=== PATIENT | male | born 1990 | race Caucasian/White ===

== ENCOUNTER 2019-03-01 22:49 | Inpatient (IN) | payer MEDICAID, OTHER ==
[~2019-03-01] VITALS: Ht 185.4 cm; Wt 61.5 kg
[2019-03-01] MEDS ORDERED: VANCOMYCIN 1,200 MG in SODIUM CHLORIDE 0.9% 250 ML IV ONE (23:30)
[2019-03-01] MEDS ORDERED: VANCOMYCIN PER PHARMACY MC ONE (23:30)
[2019-03-01] MEDS ORDERED: AMPICILLIN/SULBACTAM 3 GM in SODIUM CHLORIDE 0.9% 100 ML IV ONE (23:30)
[2019-03-01] MEDS ORDERED: SODIUM CHLORIDE 0.9% 1,000ML IVBOLUS ONE (23:30)
[2019-03-01 23:45] LABS: BASOPHILS # (AUTO) 0.07 x10^3/uL (0-0.1); BASOPHILS % (AUTO) 1 % (0-1); EOSINOPHILS # (AUTO) 0.46 x10^3/uL (0-0.4); EOSINOPHILS % (AUTO) 3 % (1-7); LYMPHOCYTES % (AUTO) 27 % (22-44); MD NO; MEAN CORPUSCULAR HEMOGLOBIN 27.4 pg (27.5-34.5); MEAN CORPUSCULAR HGB CONC 32.3 g/dL (33.2-36.2); MEAN CORPUSCULAR VOLUME 84.8 fL (81-97); MEAN PLATELET VOLUME 7.3 fL (7.4-10.4); MONOCYTES # (AUTO) 0.25 x10^3/uL (0.2-0.8); MONOCYTES % (AUTO) 2 % (2-9); NEUTROPHILS % (AUTO) 68 % (42-75); PLATELET COUNT 993 x10^3/uL (130-400); RED BLOOD COUNT 4.22 x10^6/uL (4.38-5.82); RED CELL DISTRIBUTION WIDTH 15.4 % (9.4-14.8)
[2019-03-01 23:46] LABS: HCT (SEDRATE) 35.8 % (39.2-51.8)
[2019-03-01 23:58] LABS: ALANINE AMINOTRANSFERASE 55 U/L (12-78); ANION GAP 8 mmol/L (5-15); CALCIUM 9.4 mg/dL (8.5-10.1); CHLORIDE 104 mmol/L (98-107); CREATININE 1.09 mg/dL (0.7-1.3)
[2019-03-02 00:05] LABS: ALKALINE PHOSPHATASE 414 U/L (45-117); TOTAL PROTEIN 8.9 g/dL (6.4-8.2)
--- NOTE | 2019-03-02 00:06 | NUR ---
PT PRESENTS WITH MULTIPLE OPEN WOUNDS TO BILAT HIPS AND OPEN WOUND ON RIGHT BUTTOCKS WITH DRAINAGE. PT IS PALE IN APPEARANCE AND STATES HE HAS HAD THESE WOUNDS X 1 MONTH. 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
[2019-03-02 00:09] LABS: BILIRUBIN,TOTAL < 0.1 mg/dL (0.2-1.0)
[2019-03-02] MEDS ORDERED: MORPHINE SULFATE 4 MG/ML, 1ML IVPush ONE (00:30)
[2019-03-02] MEDS ORDERED: MORPHINE SULFATE 4 MG/ML, 1ML ONE (00:32)
[2019-03-02] MEDS ORDERED: OMNIPAQUE 350 MG/ML, 100ML BOTTLE ONE (01:16)
[2019-03-02 03:56] VITALS: BP 110/73
[2019-03-02 04:00] VITALS: BP 110/73
[2019-03-02] MEDS ORDERED: ONDANSETRON 2MG/ML, 2ML IVPush PRN (04:00)
[2019-03-02] MEDS ORDERED: OXYcodone IR 5MG TABLET PO PRN (04:00)
[2019-03-02] MEDS ORDERED: LORazepam 1MG TABLET PO PRN (04:00)
[2019-03-02] MEDS ORDERED: VANCOMYCIN PER PHARMACY MC PRN (04:00)
[2019-03-02] MEDS ORDERED: ZOSYN PER PHARMACY MC PRN (04:00)
[2019-03-02] MEDS ORDERED: ACETAMINOPHEN 325 MG TABLET PO PRN ×2 (04:00→15:00)
[2019-03-02] MEDS ORDERED: PIPERACILLIN/TAZO/PMX 3.375GM 50 ML IV SCH (04:00)
[2019-03-02] MEDS ORDERED: POLYETHYLENE GLYCOL 17 GM PACKET PO PRN (04:00)
[2019-03-02] MEDS ORDERED: HYDROmorphone 2 MG/ML, 1ML IVPush PRN (04:00)
[2019-03-02] MEDS ORDERED: LACTATED RINGERS 1,000 ML IV SCH (04:00)
[2019-03-02] MEDS ORDERED: ENALAPRILAT 1.25 MG/ML, 2ML IVPush PRN (04:00)
[2019-03-02 04:13] LABS: INTERNATIONAL NORMALIZED RATIO 1.06 (0.93-1.1); PROTHROMBIN TIME 11.1 Seconds (9.6-11.5)
[2019-03-02] MEDS ORDERED: PHARMACOKINETIC MONITORING MC PRN (04:30)
[2019-03-02 04:40] LABS: HEMOGLOBIN A1C 5.5 % (4.2-6.3)
[2019-03-02 05:31] LABS: AMPHETAMINE SCREEN, URINE Positive (Negative); BARBITURATE SCREEN, URINE Negative (Negative); BENZODIAZEPINE SCREEN, URINE Negative (Negative); CANNABINOID SCREEN, URINE Negative (Negative); COCAINE SCREEN, URINE Negative (Negative); METHADONE SCREEN, URINE Negative (Negative); OPIATE SCREEN, URINE Positive (Negative)
[2019-03-02 06:37] VITALS: BP 99/62
[2019-03-02] MEDS: HEPARIN 5,000 UNITS/ML, 1ML SQ SCH ×2 (07:30→19:30)
[2019-03-02] MEDS: OXYcodone IR 5MG TABLET PO PRN ×2 (08:28→23:13)
[2019-03-02] MEDS: AMPICILLIN/SULBACTAM 3 GM in SODIUM CHLORIDE 0.9% 100 ML IV SCH ×2 (08:32→18:15)
[2019-03-02] MEDS: SENNA/DOCUSATE TABLET PO SCH (09:00)
[2019-03-02] MEDS ORDERED: VANCOMYCIN 1,000 MG ONE (14:04)
[2019-03-02] MEDS ORDERED: TOBRAMYCIN SULFATE 1.2 GM IMP ONE (14:04)
[2019-03-02] MEDS ORDERED: MIDAZOLAM 1 MG/ML, 2ML ONE (14:27)
[2019-03-02] MEDS ORDERED: DEXAMETHASONE 4 MG/ML, 1ML ONE (14:30)
[2019-03-02] MEDS ORDERED: ONDANSETRON 2MG/ML, 2ML ONE (14:30)
[2019-03-02] MEDS ORDERED: MEPERIDINE/PF 100 MG/ML ONE (14:46)
[2019-03-02] MEDS ORDERED: FENTANYL PF 250 MCG/5ML ONE ×2 (14:46→14:59)
[2019-03-02] MEDS ORDERED: HYDROmorphone 2 MG/ML, 1ML ONE ×3 (14:53→15:39)
[2019-03-02] MEDS ORDERED: hydrALAzine 20 MG/ML, 1ML IV PRN (15:00)
[2019-03-02] MEDS ORDERED: MEPERIDINE/PF 25MG/0.5ML IVPush PRN (15:00)
[2019-03-02] MEDS ORDERED: PROMETHAZINE 25 MG/ML, 1ML IV PRN (15:00)
[2019-03-02] MEDS ORDERED: KETOROLAC 30 MG/1 ML IV PRN (15:00)
[2019-03-02] MEDS ORDERED: OXYcodone 5 MG/5 ML ORAL.SOL UDC PO PRN (15:00)
[2019-03-02] MEDS ORDERED: ALBUTEROL SULFATE 2.5 MG/3 ML NPPB PRN (15:00)
[2019-03-02] MEDS ORDERED: LABETALOL 5MG/ML, 20ML IV PRN (15:00)
[2019-03-02] MEDS ORDERED: FENTANYL PF 100 MCG/2ML ONE ×2 (15:11→15:39)
[2019-03-02] MEDS ORDERED: OXYcodone 5 MG/5 ML ORAL.SOL UDC ONE (15:12)
[2019-03-02 15:19] LABS: BASOPHILS # (AUTO) 0.13 x10^3/uL (0-0.1); BASOPHILS % (AUTO) 1 % (0-1); EOSINOPHILS % (AUTO) 4 % (1-7); LYMPHOCYTES # (AUTO) 2.81 x10^3/uL (1-3.4); LYMPHOCYTES % (AUTO) 25 % (22-44); MD NO; MEAN CORPUSCULAR HEMOGLOBIN 27.9 pg (27.5-34.5); MEAN CORPUSCULAR HGB CONC 33.2 g/dL (33.2-36.2); MEAN PLATELET VOLUME 7.8 fL (7.4-10.4); MONOCYTES # (AUTO) 0.13 x10^3/uL (0.2-0.8); MONOCYTES % (AUTO) 1 % (2-9); NEUTROPHILS # (AUTO) 7.91 x10^3/uL (1.8-6.8); NEUTROPHILS % (AUTO) 70 % (42-75); PLATELET COUNT 726 x10^3/uL (130-400); RED BLOOD COUNT 3.17 x10^6/uL (4.38-5.82); RED CELL DISTRIBUTION WIDTH 15.3 % (9.4-14.8)
[2019-03-02] MEDS: HYDROmorphone 2 MG/ML, 1ML IVPush PRN ×5 (15:23→15:48)
[2019-03-02] MEDS: FENTANYL PF 100 MCG/2ML IV PRN ×3 (15:32→15:44)
[2019-03-02] MEDS: DIAZEPAM 5 MG/ML, 2ML IVPush PRN ×2 (15:36→15:48)
[2019-03-02] MEDS ORDERED: MEPERIDINE/PF 25MG/ML,1ML ONE (15:39)
[2019-03-02] MEDS ORDERED: KETOROLAC 30 MG/1 ML ONE (15:56)
[2019-03-02 16:33] VITALS: BP 99/67
[2019-03-02] MEDS: VANCOMYCIN 1,200 MG in SODIUM CHLORIDE 0.9% 250 ML IV SCH (16:39)
[2019-03-02 18:53] VITALS: BP 98/60
[2019-03-03 00:30] VITALS: BP 105/66
[2019-03-03] MEDS: AMPICILLIN/SULBACTAM 3 GM in SODIUM CHLORIDE 0.9% 100 ML IV SCH ×3 (02:49→18:16)
[2019-03-03] MEDS: VANCOMYCIN 1,200 MG in SODIUM CHLORIDE 0.9% 250 ML IV SCH ×2 (04:42→16:30)
[2019-03-03 07:16] LABS: BASOPHILS # (AUTO) 0.11 x10^3/uL (0-0.1); BASOPHILS % (AUTO) 1 % (0-1); EOSINOPHILS # (AUTO) 0.21 x10^3/uL (0-0.4); EOSINOPHILS % (AUTO) 2 % (1-7); LYMPHOCYTES # (AUTO) 3.09 x10^3/uL (1-3.4); LYMPHOCYTES % (AUTO) 28 % (22-44); MD NO; MEAN CORPUSCULAR HEMOGLOBIN 28.3 pg (27.5-34.5); MEAN CORPUSCULAR HGB CONC 33.5 g/dL (33.2-36.2); MEAN CORPUSCULAR VOLUME 84.3 fL (81-97); MEAN PLATELET VOLUME 7.5 fL (7.4-10.4); MONOCYTES # (AUTO) 0.37 x10^3/uL (0.2-0.8); MONOCYTES % (AUTO) 3 % (2-9); NEUTROPHILS # (AUTO) 7.36 x10^3/uL (1.8-6.8); NEUTROPHILS % (AUTO) 66 % (42-75); PLATELET COUNT 728 x10^3/uL (130-400); RED CELL DISTRIBUTION WIDTH 15.6 % (9.4-14.8)
[2019-03-03 07:25] LABS: ALANINE AMINOTRANSFERASE 41 U/L (12-78); ALBUMIN 2.3 g/dL (3.4-5.0); ANION GAP 4 mmol/L (5-15); CALCIUM 8.2 mg/dL (8.5-10.1); CHLORIDE 111 mmol/L (98-107); CREATININE 0.59 mg/dL (0.7-1.3)
[2019-03-03 07:27] LABS: ALKALINE PHOSPHATASE 273 U/L (45-117); TOTAL PROTEIN 6.5 g/dL (6.4-8.2)
[2019-03-03 07:37] LABS: BILIRUBIN,TOTAL < 0.1 mg/dL (0.2-1.0)
[2019-03-03 07:41] VITALS: BP 100/63
[2019-03-03] MEDS: OXYcodone IR 5MG TABLET PO PRN ×3 (08:12→20:46)
[2019-03-03] MEDS: LACTATED RINGERS 1,000 ML IV SCH ×2 (08:13→16:34)
[2019-03-03] MEDS: SENNA/DOCUSATE TABLET PO SCH (09:00)
[2019-03-03] MEDS: HEPARIN 5,000 UNITS/ML, 1ML SQ SCH ×2 (09:47→19:30)
[2019-03-03 13:02] VITALS: BP 101/63
[2019-03-03] MEDS: KETOROLAC 30 MG/1 ML IVPush PRN ×3 (14:21→22:55)
[2019-03-03] MEDS ORDERED: NICOTINE 21 MG/24 HR PATCH.TD24 TD ONE (16:00)
[2019-03-03 19:20] VITALS: BP 109/62
[2019-03-03] MEDS: ACETAMINOPHEN 325 MG TABLET PO PRN (20:51)
[2019-03-04 02:30] VITALS: BP 101/68
[2019-03-04] MEDS: OXYcodone IR 5MG TABLET PO PRN ×3 (03:01→20:10)
[2019-03-04] MEDS: AMPICILLIN/SULBACTAM 3 GM in SODIUM CHLORIDE 0.9% 100 ML IV SCH ×2 (03:01→11:25)
[2019-03-04] MEDS: ACETAMINOPHEN 325 MG TABLET PO PRN (03:01)
[2019-03-04] MEDS: LACTATED RINGERS 1,000 ML IV SCH ×3 (05:12→22:11)
[2019-03-04] MEDS: KETOROLAC 30 MG/1 ML IVPush PRN ×3 (05:12→20:16)
[2019-03-04] MEDS: VANCOMYCIN 1,200 MG in SODIUM CHLORIDE 0.9% 250 ML IV SCH (05:12)
[2019-03-04] MEDS: HEPARIN 5,000 UNITS/ML, 1ML SQ SCH ×2 (07:30→19:30)
[2019-03-04 07:41] VITALS: BP 104/67
[2019-03-04] MEDS: SENNA/DOCUSATE TABLET PO SCH (09:00)
[2019-03-04 12:34] VITALS: BP 93/56
[2019-03-04] MEDS: CEFTAROLINE 600 MG in SODIUM CHLORIDE 0.9% 100 ML IV SCH (15:42)
[2019-03-04 21:29] VITALS: BP 111/71
[2019-03-05 02:26] VITALS: BP 109/73
[2019-03-05] MEDS: CEFTAROLINE 600 MG in SODIUM CHLORIDE 0.9% 100 ML IV SCH ×2 (03:29→16:21)
[2019-03-05] MEDS: HEPARIN 5,000 UNITS/ML, 1ML SQ SCH ×2 (07:30→19:30)
[2019-03-05] MEDS: SENNA/DOCUSATE TABLET PO SCH (07:50)
[2019-03-05 08:43] VITALS: BP 101/59
[2019-03-05] MEDS ORDERED: BENZOCAINE/MENTHOL CAN TP ONE (12:30)
[2019-03-05] MEDS: OXYcodone IR 5MG TABLET PO PRN ×2 (12:42→22:35)
[2019-03-05] MEDS: KETOROLAC 30 MG/1 ML IVPush PRN ×2 (12:42→22:34)
[2019-03-05 13:04] VITALS: BP 97/60
[2019-03-05] MEDS ORDERED: LORazepam 2 MG/ML, 1ML IM ONE (14:30)
[2019-03-05 18:43] VITALS: BP 113/70
[2019-03-06] MEDS: CEFTAROLINE 600 MG in SODIUM CHLORIDE 0.9% 100 ML IV SCH ×2 (03:25→15:46)
[2019-03-06 03:56] VITALS: BP 119/76
[2019-03-06] MEDS: HEPARIN 5,000 UNITS/ML, 1ML SQ SCH ×2 (07:30→15:42)
[2019-03-06 07:36] VITALS: BP 108/69
[2019-03-06] MEDS: SENNA/DOCUSATE TABLET PO SCH (07:41)
[2019-03-06 13:23] VITALS: BP 98/58
[2019-03-06] MEDS: KETOROLAC 30 MG/1 ML IVPush PRN (14:19)
[2019-03-06] MEDS: OXYcodone IR 5MG TABLET PO PRN (14:19)
[2019-03-06] MEDS: LORazepam 2 MG/ML, 1ML IM PRN (14:19)
[2019-03-06 19:54] VITALS: BP 99/62
[2019-03-07 02:36] VITALS: BP 107/66
[2019-03-07] MEDS: CEFTAROLINE 600 MG in SODIUM CHLORIDE 0.9% 100 ML IV SCH ×2 (03:13→16:23)
[2019-03-07] MEDS: HEPARIN 5,000 UNITS/ML, 1ML SQ SCH ×2 (07:21→22:12)
[2019-03-07 09:04] VITALS: BP 104/67
[2019-03-07] MEDS: LORazepam 2 MG/ML, 1ML IM PRN (14:29)
[2019-03-07] MEDS: OXYcodone IR 5MG TABLET PO PRN ×2 (14:30→23:37)
[2019-03-07 14:35] VITALS: BP 100/64
[2019-03-07 21:30] VITALS: BP 105/65
[2019-03-07] MEDS: SENNA/DOCUSATE TABLET PO SCH (22:13)
[2019-03-08 02:00] VITALS: BP 100/55
[2019-03-08] MEDS: CEFTAROLINE 600 MG in SODIUM CHLORIDE 0.9% 100 ML IV SCH ×2 (03:30→16:10)
[2019-03-08 07:15] VITALS: BP 100/64
[2019-03-08] MEDS: HEPARIN 5,000 UNITS/ML, 1ML SQ SCH ×2 (07:18→15:31)
[2019-03-08 14:29] VITALS: BP 100/63
[2019-03-08] MEDS: LORazepam 2 MG/ML, 1ML IM PRN (16:11)
[2019-03-08] MEDS: OXYcodone IR 5MG TABLET PO PRN ×2 (16:11→23:06)
[2019-03-08 19:59] VITALS: BP 112/68
[2019-03-08] MEDS: SENNA/DOCUSATE TABLET PO SCH (21:10)
[2019-03-09 01:35] VITALS: BP 98/60
[2019-03-09] MEDS: CEFTAROLINE 600 MG in SODIUM CHLORIDE 0.9% 100 ML IV SCH (04:00)
[2019-03-09] MEDS ORDERED: HEPARIN 5,000 UNITS/ML, 1ML SQ SCH (11:30)
== END 2019-03-09 08:20 | disposition left against medical advice (07) | DRG 853 ==
LOC: ED 03-02 00:03 → EDIP 03-02 02:55 → 3NE 03-02 03:44
PROVIDERS: ADMIT Family Medicine; ATTEND Family Medicine
PROC: 0JBL0ZZ Excision of Right Upper Leg Subcutaneous Tissue and Fascia, Open Approach (ICD-10-PCS; 2019-03-02)
PROC: 0JB90ZZ Excision of Buttock Subcutaneous Tissue and Fascia, Open Approach (ICD-10-PCS; 2019-03-02)
PROC: 0JBM0ZZ Excision of Left Upper Leg Subcutaneous Tissue and Fascia, Open Approach (ICD-10-PCS; 2019-03-02)
PROC: 0JBJ0ZZ Excision of Right Hand Subcutaneous Tissue and Fascia, Open Approach (ICD-10-PCS; principal; 2019-03-02 14:00)
DX: A41.9 Sepsis, unspecified organism (principal); E43 Unspecified severe protein-calorie malnutrition; Z68.1 Body mass index [BMI] 19.9 or less, adult; K61.1 Rectal abscess; L02.31 Cutaneous abscess of buttock; L02.416 Cutaneous abscess of left lower limb; R64 Cachexia; B19.20 Unspecified viral hepatitis C without hepatic coma; B95.62 Methicillin resistant Staphylococcus aureus infection as the cause of diseases classified elsewhere; F11.90 Opioid use, unspecified, uncomplicated; F12.90 Cannabis use, unspecified, uncomplicated; F15.90 Other stimulant use, unspecified, uncomplicated; F17.210 Nicotine dependence, cigarettes, uncomplicated; F19.10 Other psychoactive substance abuse, uncomplicated; K59.00 Constipation, unspecified; M65.9 Synovitis and tenosynovitis, unspecified; R65.20 Severe sepsis without septic shock; G47.9 Sleep disorder, unspecified; Z53.21 Procedure and treatment not carried out due to patient leaving prior to being seen by health care provider
CPT/HCPCS: 36415; 84145; 87806; 99291; J3260; 71045; 72193; 80053; 80074; 80202; 80307; 82728; 83036; 83540; 83550; 83605; 83735; 84100; 84443; 84466; 85014; 85018; 85025; 85610; 85651; 85730; 86140; 86592; 87040; 87070; 87075; 87077; 87147; 87186; 87205; 87521; 93306; 96365; 96366; 96367; 96375; G0378; J0295; J0712; J1100; J1170; J1644; J1885; J2175; J2250; J2405; J2543; J3010; J3360; J3370; Q9967; G0475; J2060; J7030; J7050; J7120